=== PATIENT | female | born 1965 | race Hispanic/Latino ===

== ENCOUNTER 2024-01-03 09:00 | Emergency (ER) | payer BC, OTHER ==
[~2024-01-03] VITALS: Ht 160 cm; Wt 75.7 kg
[2024-01-03 09:03] VITALS: BP 151/79
--- NOTE | 2024-01-03 09:45 | ERN ---
General Chief Complaint: Itching Stated Complaint: YEAST INFECTION X 2 WEEKS Time Seen by MD: 09:09 Source: patient History of Present Illness Initial Comments Patient is a 58-year-old female coming in to be evaluated for vaginal itchiness. Patient states that she has gone to several hospitals was diagnosed with Yaritza vaginitis was prescribed fluconazole she states he was running out of it and she also states the medication helps her on and off she is pending a gynecology visit. Allergies: Coded Allergies: No Known Allergies (Unverified Allergy, Unknown, 01/03/24) Past Medical History Past Medical History: Anxiety, GERD, Hypertension, Migraines Past Surgical History: Hysterectomy, Other Surgical History Other: OVARIAN PROBLEMS, COLLAPSE LUNG ROS Dictation CONSTITUTIONAL: No chills, no fever, no weakness, no diaphoresis, no malaise. HEAD/FACE: No signs of trauma. EENT: No eye pain, no blurred vision, no tearing, no double vision, no ear pain, no ear discharge, no nose pain, no nasal congestion, no throat pain, no throat swelling, no mouth pain. RESPIRATORY: No cough, no orthopnea, no SOB, no stridor, no wheezing. CARDIOVASCULAR: No chest pain, no edema, no palpitations, no syncope. GASTROINTESTINAL/ABDOMINAL: No abdominal pain, no constipation, no diarrhea, no nausea, no vomiting. GENITOURINARY: No abnormal discharge, no dysuria, no frequent urination, no hematuria. No complaints of pain in the genitals. MUSCULOSKELETAL: No back pain, no gout, no joint pain, no joint swelling, no muscle pain, no muscle stiffness, no neck pain. INTEGUMENTARY: No change in color, no change in hair/nails, no dryness, no lesion, no lumps, no rash. NEUROLOGICAL/PSYCH: No anxiety, not depressed, no emotional problem, no headache, no numbness, no pre-existing deficit, no history of seizures, no tremors, no weakness. HEMATOLOGIC/LYMPHATIC: Not anemic, no history of blood clots, no apparent bleeding, no bruising, glands not swollen. All Systems Negative, Except as Noted. Physical Exam Physical Exam Dictation VITAL SIGNS: Reviewed. GENERAL APPEARANCE: Alert, oriented x3, no acute distress, obese. HEAD AND FACE: Non-traumatic. EYES: PERRL, pink conjunctivas, eyelid no trauma, anterior chamber clear. EARS: Pinnas intact and no signs of trauma or erythema. Ear canals clear and no discharge. TMs no erythema. NOSE: No discharge, no bleeding. OROPHARYNX: Mouth normal, teeth no caries, tongue pink. Pharynx clear, no erythema. Tonsils no exudates, no abscesses noted. Mucous membrane moist. NECK: Supple, non-tender, no thyromegaly, no masses, no JVD, no bruits. BREAST: Deferred. CHEST: No tenderness, no crepitus, no paradoxical movement, no retractions. LUNGS: Clear, well-ventilated, symmetric, no rales, no wheezing, no rhonchi, no stridor, good breath sounds bilaterally. HEART: Regular rate, regular rhythm, no murmur, no gallops. VASCULAR: No peripheral edema. ABDOMEN: Soft, positive bowel sounds, nondistended, no guarding, nontender, no rebound, no masses no hepatomegaly, no splenomegaly, no Owusu's sign, no hernias. RECTAL: Deferred. GENITAL: External labia majora irritation, vaginal discharge chaperoned by nurse, yellowish discharge NEUROLOGICAL: Normal speech, gross motor function intact, gross sensory func tion intact. MUSCULOSKELETAL: Neck nontender, full range of motion, back nontender, full range of motion. EXTREMITIES: Nontender, full range of motion. SKIN: Color pink, dry, no turgor, no rash, no lacerations, no abrasions, no contusions. LYMPHATICS: Deferred. Results Laboratory and Microbiology Labs Reviewed?: Yes MDM MDM: Differential diagnosis: Vaginitis, vaginal discharge, Patient is a 58-year-old female coming in to be evaluated for vaginal discomfort. Patient states that she has been to the different hospital and was diagnosed with Yaritza vaginitis was prescribed fluconazole. She states he got better but again it started getting worse. Patient is here for evaluation. On physical exam which was limited patient states she can not tolerate speculum. Patient will be discharged with a diagnosis of vaginitis. ED Course Orders Procedure Category Date Status Time Urinalysis LAB 01/03/24 Logged W/Microscopic 09:12 Chlamydia & Gc Pcr DALIA 01/03/24 Logged 09:12 Vital Signs Date Time Temp Pulse Resp B/P (MAP) Pulse Ox O2 Delivery O2 Flow Rate FiO2 01/03/24 09:03 97.9 104 16 151/79 96 Room Air 0 DX & DISP Disposition: Discharge Departure Impression: Primary Impression: Vaginal discharge Additional Impression: Vaginitis Condition: Stable Scripts Metronidazole (Flagyl) 375 Mg Capsule 1 CAP PO BID for 7 Days, #14 CAP 0 Refills Prov: BRAYAN CHANDLER MD 01/03/24 Additional Instructions: FOLLOW-UP WITH PRIMARY CARE PROVIDER IN 1 TO 2 DAYS. TAKE MEDICATIONS DIRECTED HERE IN THE EMERGENCY ROOM. OKAY TO CONTINUE HOME MEDICATIONS UNLESS OTHERWISE DISCUSSED DURING YOUR VISIT IN THE EMERGENCY ROOM TODAY. RETURN TO YOUR NEAREST EMERGENCY ROOM IF SYMPTOMS WORSEN OR IF THERE IS NO IMPROVEMENT. CALL 911 IF YOU NEED IMMEDIATE ASSISTANCE. TAKE TYLENOL [id number] NEEDED AND IF NO CONTRAINDICATIONS ARE PRESENT. INCREASE ORAL HYDRATION. A WOUND CULTURE OR URINE CULTURE WAS ORDERED HERE IN THE EMERGENCY ROOM DEPARTMENT PLEASE FOLLOW-UP WITH PRIMARY CARE PROVIDER AND ADVISE THEM TO GET REPEAT PORTS FROM OUR FACILITY. IF YOU HAD ANY SHAUNA WRAP/SPLINTS THAT WERE APPLIED HERE, PLEASE DO NOT REMOVE THEM UNTIL YOU SEE YOUR PRIMARY CARE OR SPECIALTY. Referrals: Referrals: FUNMI MCCRAY MD (PCP) SILVIA PAVON MD Time of Disposition: 10:24 BRAYAN CHANDLER MD Jan 03, 2024 09:45
[2024-01-03 10:24] VITALS: PULSE 95; RESP 16; TEMP 97.9; O2SAT 98
[2024-01-03] MEDS ORDERED: METR375C2 PO (10:25)
[2024-01-03 11:25] LABS: APPEARANCE,URINE CLOUDY (CLEAR); BILIRUBIN,URINE NEGATIVE (NEGATIVE); COLOR,URINE YELLOW (YELLOW); GLUCOSE, URINE (UA) NEGATIVE (NEGATIVE); KETONES,URINE NEGATIVE (NEGATIVE); LEUKOCYTE ESTERASE ,URINE 250 Leu/uL (NEGATIVE); NITRATE,URINE NEGATIVE (NEGATIVE); OCCULT BLOOD,URINE LARGE (NEGATIVE); PH,URINE 5.5 (5.0-8.0); PROTEIN,URINE 20 mg/dL (NEGATIVE); UROBILINOGEN,URINE 0.2 mg/dL (0.2-1.0)
[2024-01-03 11:47] LABS: BACTERIA,URINE FEW /HPF (None Seen); MUCUS,URINE FEW LPF (None Seen); OTHER CASTS, URINE 1 /LPF (None Seen); RBC,URINE 51-100 /HPF (0-1); SQUAMOUS EPITHELIAL CELL,UR FEW /HPF (0-2); TRANSITIONAL EPI CELLS,URINE FEW /HPF (None Seen); UNCLASSIFIED CRYSTAL 1 /HPF (None Seen)
== END 2024-01-03 10:58 | disposition home or self-care (01) ==
LOC: EDH 09:00
DX: N76.0 Acute vaginitis (principal); I10 Essential (primary) hypertension; K21.9 Gastro-esophageal reflux disease without esophagitis; G43.909 Migraine, unspecified, not intractable, without status migrainosus; Z90.710 Acquired absence of both cervix and uterus; Z98.890 Other specified postprocedural states
CPT/HCPCS: 81001; 87086; 87186; 87491; 87591; 99283